=== PATIENT | male | born 1950 | race American Indian/Alaskan Native ===

== ENCOUNTER 2019-01-16 11:57 | Day surgery (SDC) | payer MEDICARE ==
[~2019-01-16 11:57] MED LIST: MARCAINE 0.25% INFILTRATI ONE; NEOSPORIN GU IR ONE
[2019-01-16] MEDS ORDERED: ANCEF/STERILE WATER 2 GM/20 ML 2 GM/20 ML SYRINGE IV NR (12:09)
[2019-01-16] MEDS ORDERED: NEURONTIN PO NR (13:00)
[2019-01-16] MEDS ORDERED: LACTATED RINGERS 1,000 ML IV SCH (13:00)
[2019-01-16] MEDS ORDERED: VERSED IV NR (13:13)
[2019-01-16] MEDS ORDERED: PEPCID PO NR (13:14)
[2019-01-16] MEDS ORDERED: DIPRIVAN 10 MG/ML IV ONE (13:36)
[2019-01-16] MEDS ORDERED: XYLOCAINE MPF 2% ONE (13:36)
[2019-01-16] MEDS ORDERED: DILAUDID ONE (13:36)
[2019-01-16] MEDS ORDERED: NACL 0.9% IR ONE (13:41)
[2019-01-16] MEDS ORDERED: MARCAINE 0.25% INFILTRATI ONE (13:41)
[2019-01-16] MEDS ORDERED: DILAUDID IV PRN (14:01)
[2019-01-16] MEDS ORDERED: ZEMURON IV ONE (14:08)
[2019-01-16] MEDS ORDERED: TYLENOL PO ONE (14:12)
[2019-01-16] MEDS ORDERED: ROBINUL ONE (15:35)
[2019-01-16] MEDS ORDERED: ZOFRAN ONE (15:35)
[2019-01-16] MEDS ORDERED: BLOXIVERZ ONE (15:35)
--- NOTE | 2019-01-16 15:38 | Post Operative Note ---
Date of procedure: 01/16/19 Pre-op diagnosis: lih cap Post-op diagnosis: same Findings: large pantaloon Procedure: lih repair Anesthesia: GETA Surgeon: ADEN WASSERMAN Estimated blood loss: minimal Pathology: list (sac lipoma) Specimen disposition: to lab Condition: stable Disposition: PACU
--- NOTE | 2019-01-16 15:40 | Discharge Summary ---
Short Stay Discharge Plan Activity: other (no lifting ) Weight Bearing Status: Full Weight Bearing Diet: low fat, low cholesterol, low salt Wound: keep clean and dry Special Instructions: other (ice in RR) Durable Medical Equipment Needed Upon Discharge: other (ice ) Follow up with: KIMBERLY MOSELEY,LENCHO VELAZCO MD [Primary Care Provider] - 7 Days ADEN WASSERMAN MD [Staff Physician] - 7 Days
[2019-01-16] MEDS ORDERED: SUBLIMAZE ONE (15:53)
[2019-01-16] MEDS ORDERED: DEMEROL ONE (15:57)
[2019-01-16] MEDS ORDERED: DEMEROL IV PRN (16:04)
[2019-01-16] MEDS ORDERED: ZOFRAN IV PRN (16:04)
[2019-01-16 17:28] VITALS: BP 149/88
--- NOTE | 2019-01-16 19:04 | Operative Report ---
PREOPERATIVE DIAGNOSIS: Huge left inguinal hernia. POSTOPERATIVE DIAGNOSIS: Pantaloon hernia. PROCEDURE: Left inguinal hernia repair with plug and mesh. SURGEON: Jagdish Goldsmith MD ANESTHESIA: General. FINDINGS: This is a gentleman with a large defect, left groin. He has a large inguinal hernia. He also has prostate cancer, he now presents for treatment. DESCRIPTION OF PROCEDURE: The patient was brought to the operating room and placed on the operating table. Following induction of anesthesia, placed in supine position, prepped and draped in the usual sterile fashion. An oblique incision was made over the left inguinal area. It was carried through the skin and superficial fascia. It was carried down to the external oblique aponeurosis. This was dissected free. There were lots of thickened scars at the external ring. The fascia was opened and the ilioinguinal nerve was retracted medially. The internal oblique muscle was very thin and attenuated. The floor was attenuated and there was a large defect with scarring around the cord. Once we took off a large lipoma, we were able to see the sac; dissected it free, opened it and had a high ligation. Wound was irrigated. At this point, the pubic tubercle was visualized. The sutures were placed there to be used later. There was a large defect and we placed a mesh and secured it, so it would not migrate. At this point, the circumferential sutures of 2-0 Ethibond were placed with a keyhole mesh. The patient tolerated the procedure well. Wound was copiously irrigated with antibiotic solution. Superficial fascia was closed with 3-0 chromic, skin with clips. The patient tolerated the procedure well, minimal blood loss, in stable condition. JOB# [id number] CHELE/ELDON
== END 2019-01-16 17:45 | disposition home or self-care (01) ==
LOC: OR 11:57
PROVIDERS: ATTEND Urology
DX: K40.90 Unilateral inguinal hernia, without obstruction or gangrene, not specified as recurrent (principal); C61 Malignant neoplasm of prostate; I10 Essential (primary) hypertension; K21.9 Gastro-esophageal reflux disease without esophagitis; Z98.890 Other specified postprocedural states; Z87.891 Personal history of nicotine dependence; Z79.899 Other long term (current) drug therapy; Z79.01 Long term (current) use of anticoagulants
CPT/HCPCS: 49505; 82962; J1170; J2175; J2250; J2405; J2704; J2710; J3010; J7120; 88302; 88304; C1781

== ENCOUNTER 2021-06-30 09:44 | Observation (INO) | payer MEDICARE ==
[2021-06-28 10:48] LABS: Hematocrit 33.6 % (35.5-45.6); Hemoglobin 11.1 gm/dl (11.8-15.2); Mean Corpuscular HGB Conc 33 % (32-34); Mean Corpuscular Volume 86 fl (84-94); Platelet Count 376 K/mm3 (140-440); Red Blood Count 3.91 M/mm3 (3.65-5.03); Red Cell Distribution Width 15.4 % (13.2-15.2)
[2021-06-28 11:15] LABS: Alanine Aminotransferase 11 units/L (7-56); Albumin 3.8 g/dL (3.9-5); BUN/Creatinine Ratio 10; Blood Urea Nitrogen 7 mg/dL (9-20); Calcium 9.1 mg/dL (8.4-10.2); Hemolysis Index 3
--- NOTE | 2021-06-28 14:03 | Anesthesia Consultation ---
Anesthesia Consult and Med Hx Date of service: 06/30/21 - Airway Anesthetic Teeth Evaluation: Dentures (Upper), Partials (Lower) - Pre-Operative Health Status Proposed Anesthetic Plan: General - Pulmonary Hx Smoking: Yes (STOPPED 2013) Hx Respiratory Symptoms: No (+2FS) Hx Sleep Apnea: No (KENYA PRE SCREEN HIGH RISK) - Cardiovascular System Hx Hypertension: Yes (X 2 YRS) Hx Heart Attack/AMI: No (negative stress test [id number]) Hx Valvular Heart Disease: Yes (MODERATE MR, mild AI. Stable echo [id number]) - Central Nervous System Hx Back Pain: Yes (NECK PAIN) - Gastrointestinal Hx Gastroesophageal Reflux Disease: Yes - Hematic Hx Anemia: Yes (NOT RECENT) - Other Systems Hx Substance Use: Yes (OCC MARIJUANA) Hx Cancer: Yes
[~2021-06-30 09:44] MED LIST changes: +ACETAMINOPHEN 325 MG TAB PO NR; +CELECOXIB 200 MG CAP PO NR; +LACTATED RINGERS 1,000 ML IV SCH; +MAGNESIUM OXIDE 400 MG TAB PO NR; -MARCAINE 0.25% INFILTRATI ONE; -NEOSPORIN GU IR ONE
[2021-06-30] MEDS ORDERED: HYDROmorphone 1 MG/1 ML INJ IV PRN ×2 (11:39)
[2021-06-30] MEDS ORDERED: ONDANSETRON 4 MG/2 ML INJ IV PRN (11:39)
--- NOTE | 2021-06-30 11:39 | Anesthesia Day of Surgery ---
Anesthesia Day of Surgery - Day of Surgery Patient Examined: Yes Patient H&P Reviewed: Yes Patient is NPO: Yes
[2021-06-30] MEDS ORDERED: ceFAZolin/Water 2 GM/20 ML 2 GM/20 ML SYRINGE IV ONE (12:09)
[2021-06-30] MEDS ORDERED: ceFAZolin/STERILE WATER 2 GM/20 ML SYRINGE IV NR (12:14)
[2021-06-30] MEDS ORDERED: LIDOCAINE PF 100 MG/5 ML (CARDIAC SYRINGE) IV ONE (12:17)
[2021-06-30] MEDS ORDERED: propofoL 200 MG/20 ML VIAL IV ONE (12:17)
[2021-06-30] MEDS ORDERED: KETAMINE/STERILE WATER 50 MG/ML SYRINGE ONE (12:43)
[2021-06-30] MEDS ORDERED: METHYLENE BLUE 50 MG/10 ML AMP ONE (12:54)
[2021-06-30] MEDS ORDERED: SODIUM CHLORIDE 0.9% IRRIG SOLN 2000 ML IR ONE ×2 (12:58)
[2021-06-30] MEDS ORDERED: WATER FOR IRRIG STERILE 1,000 ML BOTTLE IR ONE ×2 (12:59)
[2021-06-30] MEDS ORDERED: ONDANSETRON 4 MG/2 ML INJ ONE (13:09)
[2021-06-30] MEDS ORDERED: dexAMETHasone 20 MG/5 ML VIAL ONE (13:19)
[2021-06-30] MEDS ORDERED: KETOROLAC 30 MG/1 ML INJ ONE (13:31)
--- NOTE | 2021-06-30 13:57 | Post Operative Note ---
Pre-op diagnosis: lou hematuria necrosis cap post xrt Post-op diagnosis: same Findings: necrotic tissue Procedure: cysto turp Anesthesia: GETA Surgeon: ADEN WASSERMAN Estimated blood loss: 50-100ml Pathology: list (chips) Specimen disposition: to lab Condition: stable
[2021-06-30] MEDS ORDERED: ONDANSETRON 4 MG ODT TAB PO PRN (13:58)
[2021-06-30] MEDS ORDERED: NALOXONE 0.4 MG/1 ML INJ IV PRN (13:58)
[2021-06-30] MEDS ORDERED: ZOLPIDEM 5 MG TAB PO PRN (13:58)
[2021-06-30] MEDS ORDERED: SODIUM CHLORIDE 0.9% IRR 1,000 ML BOTTLE IR PRN (13:58)
[2021-06-30] MEDS ORDERED: D5W/0.45% NACL/KCL 20 MEQ 20 MEQ/1,000 ML BAG IV SCH (14:00)
[2021-06-30] MEDS ORDERED: SODIUM CHLORIDE 0.9% IRRIG SOLN 2000 ML IR SCH (14:00)
--- NOTE | 2021-06-30 14:34 | Operative Report ---
DATE OF SURGERY: 06/30/2021 PREOPERATIVE DIAGNOSES: Severe radiation cystitis, hematuria, necrosis. POSTOPERATIVE DIAGNOSES: Severe radiation cystitis, hematuria, necrosis. PROCEDURE PERFORMED: Cystoscopy, transurethral resection of prostate. SURGEON: Dr. Goldsmith. ANESTHESIA: General. FINDINGS: This is a gentleman with severe necrosis in the prostatic urethra. Fluffy irregular tissue would obstruct the urethra. He now presents for treatment. DESCRIPTION OF PROCEDURE: The patient was brought to the operating room and placed on the operating table. Following induction of anesthesia, placed in lithotomy position, prepped and draped in the usual sterile fashion. Cystourethroscopy showed severe necrosis. We were able to see the orifices tucked in behind the severe inflammation. We used the bipolar resectoscope. Resection was carried out. The patient tolerated the procedure well. No significant complication. Minimal blood loss, less than 100 mL. The irrigation was clear. A 23, 3-way was placed. Irrigation was perfectly clear. The patient tolerated the procedure well. We put about 30-35 mL in the balloon and brought to recovery in stable condition. TID: [id number] RECEIPT: [id number] CHELE/CESARIO
[2021-06-30] MEDS ORDERED: ACETAMINOPHEN 325 MG TAB PO PRN (15:00)
--- NOTE | 2021-06-30 15:13 | Post Anesthesia Evaluation ---
- Post Anesthesia Evaluation Patient Participated: Yes Airway Patent: Yes Stable Respiratory Function: Yes Nausea/Vomiting: No Temp > 96.8F: Yes Pain Manageable: Yes Adequeate Hydration: Yes Anesthesia Complications: No Block Receding Appropriately: Not Applicable Patient on Ventilator: No
--- NOTE | 2021-06-30 17:11 | XRay Report ---
ABDOMEN 1 VIEW 06/30/2021 3:42 PM INDICATION / CLINICAL INFORMATION: GROSS HEMATURIA, ENLARGED PROSTATE. Abdomen 1 view INDICATION: Hematuria FINDINGS: Fluoroscopy time 2 seconds. Nonspecific bowel gas pattern. Degenerative change throughout s pine. Signer Name: Alcides Chu MD Signed: 06/30/2021 5:06 PM Workstation Name: [id number]
[2021-06-30] MEDS: DOCUSATE SODIUM 100 MG CAP PO SCH (21:55)
[2021-06-30] MEDS: ceFAZolin/NS 1 GM/50 ML 1 GM/50 ML BAG IV SCH (22:42)
[2021-07-01] MEDS: oxyCODONE /ACETAMINOPHEN 5-325MG TAB PO PRN ×3 (01:33→17:00)
[2021-07-01] MEDS: ceFAZolin/NS 1 GM/50 ML 1 GM/50 ML BAG IV SCH ×2 (04:28→12:53)
--- NOTE | 2021-07-01 08:17 | Progress Note ---
Assessment and Plan looks great cleat home with cath Subjective Date of service: 07/01/21 Principal diagnosis: lou radiation Objective - Constitutional Vitals: Vital Signs - 12hr 06/30/21 06/30/21 07/01/21 20:52 21:00 00:07 Temperature 98.2 F 98.4 F 98.4 F Pulse Rate 57 L 58 L 60 Respiratory 18 12 18 Rate Blood Pressure 141/71 141/71 157/70 O2 Sat by Pulse 97 97 93 Oximetry 07/01/21 04:46 Temperature 97.9 F Pulse Rate 70 Respiratory 18 Rate Blood Pressure 127/66 O2 Sat by Pulse 99 Oximetry General appearance: Present: no acute distress - Neck Neck: supple - Respiratory Respiratory effort: normal Extremities: no ischemia - Genitourinary Male genitourinary: normal - Labs CBC & Chem 7: 06/28/21 10:25 06/28/21 10:25 Medications & Allergies - Medications Allergies/Adverse Reactions: Allergies No Known Allergies Allergy (Verified 01/02/19 10:26) Home Medications: Home Medications Medication Instructions Recorded Confirmed Last Taken Type Lisinopril [Zestril] 40 mg PO DAILY 01/02/19 06/18/21 06/29/21 18:30 History Pantoprazole [Protonix] 40 mg PO QDAY 01/02/19 06/18/21 06/29/21 18:30 History amLODIPine [Norvasc] 5 mg PO DAILY 01/02/19 06/30/21 06/29/21 09:00 History Tamsulosin [Flomax] 0.4 mg PO QDAY 06/18/21 06/18/21 06/29/21 18:30 History Active Medications: Generic Name Dose Route Start Last Admin Trade Name Freq PRN Reason Stop Dose Admin Acetaminophen 650 mg 06/30/21 15:00 Acetaminophen 325 Mg Tab PO Q4H PRN Pain MILD(1-3)/Fever >100.5/TORRES Docusate Sodium 100 mg 06/30/21 22:00 06/30/21 21:55 Docusate Sodium 100 Mg Cap PO 100 mg BID SATHISH Administration Potassium Chloride/Dextrose/Sod Cl 20 meq in 1,000 mls @ 125 mls/hr 06/30/21 14:00 D5w/0.45% Nacl/Kcl 20 Meq IV DIRECT SATHISH Cefazolin Sodium 1 gm in 50 mls @ 100 mls/hr 06/30/21 20:00 07/01/21 07:26 Ancef/Ns 1 Gm/50 Ml IV 07/01/21 20:29 Infused Q8H SATHISH Infusion Protocol Naloxone HCl 0.1 mg 06/30/21 13:58 Naloxone 0.4 Mg/1 Ml Inj IV Q2MIN PRN Res Rate </= 8 or 02 SAT < 92% Ondansetron HCl 4 mg 06/30/21 13:58 Ondansetron 4 Mg Odt Tab PO Q8H PRN Nausea And Vomiting Oxycodone/Acetaminophen 2 tab 06/30/21 13:58 07/01/21 01:33 Oxycodone /Acetaminophen 5-325mg Tab PO 2 tab Q6H PRN Administration Pain, Moderate (4-6) Sodium Chloride 30 ml 06/30/21 13:58 Sodium Chloride 0.9% Irr 1,000 Ml Bottle IR Q2H PRN Wound Care Sodium Chloride 2,000 ml 06/30/21 14:00 07/01/21 07:31 Sodium Chloride 0.9% Irrig Soln 2000 Ml IR 2,000 ml DIRECT SATHISH Administration Zolpidem Tartrate 5 mg 06/30/21 13:58 Zolpidem 5 Mg Tab PO QHS PRN Sleep
--- NOTE | 2021-07-01 08:18 | Discharge Summary ---
Short Stay Discharge Plan Activity: other (no straining ) Weight Bearing Status: Full Weight Bearing Diet: low fat, low cholesterol, low salt Special Instructions: other (inc fluids ) Durable Medical Equipment Needed Upon Discharge: other (daugherty ) Follow up with: PRIMARY CARE, [Primary Care Provider] - 7 Days ADEN WASSERMAN MD [Staff Physician] - 3 Days
[2021-07-01] MEDS: DOCUSATE SODIUM 100 MG CAP PO SCH (11:25)
[2021-07-01 19:50] VITALS: BP 101/73
== END 2021-07-01 20:15 | disposition home or self-care (01) ==
LOC: OR 09:44 → 3A 13:58 → 3B-SURG 20:24
PROVIDERS: ADMIT Urology; ATTEND Urology
DX: N30.41 Irradiation cystitis with hematuria (principal); N40.1 Benign prostatic hyperplasia with lower urinary tract symptoms; R31.9 Hematuria, unspecified; R33.8 Other retention of urine
CPT/HCPCS: 36415; 52601; 74018; 80053; 85027; 86850; 86900; 86901; 88112; 88305; 96365; 96366; 96375; A4217; G0378; J0690; J1100; J1170; J1885; J2001; J2405; J2704; J3490; J7120; Q9967; Q9968